=== PATIENT | male | born 1935 | race Caucasian/White ===

== ENCOUNTER 2016-12-08 14:55 | Inpatient (IN) | payer OTHER, MEDICARE ==
[~2016-12-08] VITALS: Ht 165.1 cm; Wt 65.0 kg
[~2016-12-08 14:55] MED LIST: ASPIRIN FOR CHI81 MG PO; DIABETA5 MG PO; FLEXERIL10 MG PO; LISINOPRIL2.5 MG PO; MEDROL DOSEPAK4 MG PO; MICRO-K 1010 MEQ PO; NAPROSYN375 MG PO; PEPCID20 MG PO; PRILOSEC20 MG PO; TENORETIC PO; TENORETIC-25/501 TAB PO; VICODIN 5/500 505 MG PO; ZOFRAN ODT8 MG PO
[2016-12-08 15:05] VITALS: BP 153/90
[2016-12-08] MEDS ORDERED: FISH OIL1000 MG PO (15:07)
[2016-12-08 15:20] LABS: BASO % 0.5 % (0.0-1.0); EOS # 0.3 10*3/uL (0.0-0.4); EOS % 4.2 % (1.0-4.0); HEMATOCRIT 38.5 % (42.0-52.0); HEMOGLOBIN 13.2 g/dl (14.0-18.0); LYMPH # 1.7 10*3/uL (1.3-4.4); LYMPH % 25.8 % (27.0-41.0); MEAN CELL VOLUME 87.3 fl (80.0-94.0); MEAN CORPUSCULAR HGB 29.9 pg (27.0-31.0); MEAN CORPUSCULAR HGB CONC 34.3 g/dl (33.0-37.0); MEAN PLATELET VOLUME 11.5 fl (9.6-12.3); MONO # 0.7 10*3/uL (0.1-1.0); NEUT # 3.9 10*3/uL (2.3-7.9); NEUT % 59.2 % (47.0-73.0); PLATELET COUNT AUTOMATED 127 10*3/uL (130-400); RED BLOOD COUNT 4.41 10*6/uL (4.50-5.90); RED CELL DISTRI WIDTH 12.8 % (0-14.5); WHITE BLOOD COUNT 6.6 10*3/uL (4.8-10.8)
[2016-12-08 15:29] LABS: PROTHROMBIN TIME 10.5 SECONDS (9.0-12.4)
[2016-12-08 15:37] LABS: ALBUMIN 3.4 gm/dl (3.1-4.5); ALKALINE PHOSPHATASE 122 U/L (45-117); BILIRUBIN, TOTAL 0.3 mg/dl (0.2-1.0); BUN 22 mg/dl (7-24); CARBON DIOXIDE 28 mmol/L (21-32); CHLORIDE 111 mmol/L (98-107); EST GLOM FILT AFRICAN AMERICAN > 60 ml/min; GLUCOSE 127 mg/dL (65-99); MAGNESIUM 1.8 mg/dL (1.5-2.1); POTASSIUM 4.2 mmol/L (3.5-5.1); SGOT/AST 16 IU/L (3-35); SGPT/ALT 18 U/L (12-78); SODIUM 144 mmol/L (136-145); TOTAL PROTEIN 6.1 gm/dL (6.4-8.2)
[2016-12-08 15:38] LABS: TROPONIN I < 0.015 ng/ml (<0.045)
[2016-12-08 16:43] VITALS: BP 152/94
[2016-12-08 17:30] VITALS: BP 172/84
[2016-12-08 20:00] VITALS: BP 165/77
[2016-12-09] VITALS: BP 159/77
[2016-12-09 00:42] LABS: CKMB 1.8 ng/ml (0.5-3.6)
[2016-12-09 06:34] LABS: BASO % 0.6 % (0.0-1.0); EOS # 0.4 10*3/uL (0.0-0.4); EOS % 5.2 % (1.0-4.0); HEMATOCRIT 41.4 % (42.0-52.0); HEMOGLOBIN 14.2 g/dl (14.0-18.0); LYMPH # 1.7 10*3/uL (1.3-4.4); LYMPH % 25.7 % (27.0-41.0); MEAN CORPUSCULAR HGB 29.8 pg (27.0-31.0); MEAN CORPUSCULAR HGB CONC 34.3 g/dl (33.0-37.0); MEAN PLATELET VOLUME 11.5 fl (9.6-12.3); MONO # 0.6 10*3/uL (0.1-1.0); MONO % 9.3 % (3.0-9.0); NEUT # 3.9 10*3/uL (2.3-7.9); NEUT % 58.8 % (47.0-73.0); PLATELET COUNT AUTOMATED 128 10*3/uL (130-400); RED BLOOD COUNT 4.76 10*6/uL (4.50-5.90); RED CELL DISTRI WIDTH 12.8 % (0-14.5); WHITE BLOOD COUNT 6.7 10*3/uL (4.8-10.8)
[2016-12-09 06:44] LABS: CKMB 1.4 ng/ml (0.5-3.6)
[2016-12-09 06:53] LABS: HEMOGLOBIN A1c 6.8 % (4.8-5.6)
[2016-12-09 07:09] LABS: BUN 19 mg/dl (7-24); CARBON DIOXIDE 28 mmol/L (21-32); CHLORIDE 109 mmol/L (98-107); GLUCOSE 130 mg/dL (65-99); POTASSIUM 4.2 mmol/L (3.5-5.1); SODIUM 143 mmol/L (136-145)
[2016-12-09 07:12] LABS: PROTHROMBIN TIME 10.6 SECONDS (9.0-12.4)
[2016-12-09 07:20] LABS: EST GLOM FILT AFRICAN AMERICAN > 60 ml/min; FREE T4 0.92 ng/dl (0.76-1.46)
[2016-12-09 07:28] LABS: VITAMIN D, 25-HYDROXY 46.2 ng/mL (30-100)
[2016-12-09 07:32] LABS: FOLIC ACID > 24.00 ng/mL (>5.38)
[2016-12-09 08:00] VITALS: BP 137/64
[2016-12-09 12:00] VITALS: BP 152/73
[2016-12-09] MEDS ORDERED: LISINOPRIL20 MG PO (15:56)
== END 2016-12-09 16:57 | disposition home or self-care (01) | DRG 392 ==
LOC: ED 14:55 → 4E 16:35 → EDHOLD 16:35 → 4E 16:36
PROVIDERS: Internal Medicine
PROC: 4A02XM4 Measurement of Cardiac Total Activity, External Approach (ICD-10-PCS; principal; 2016-12-09)
DX: K21.9 Gastro-esophageal reflux disease without esophagitis (principal); E11.65 Type 2 diabetes mellitus with hyperglycemia; D69.6 Thrombocytopenia, unspecified; E44.1 Mild protein-calorie malnutrition; I25.2 Old myocardial infarction; I45.10 Unspecified right bundle-branch block; Z90.49 Acquired absence of other specified parts of digestive tract; I10 Essential (primary) hypertension; Z87.891 Personal history of nicotine dependence; D64.9 Anemia, unspecified; Z68.23 Body mass index [BMI] 23.0-23.9, adult; N40.0 Benign prostatic hyperplasia without lower urinary tract symptoms

== ENCOUNTER → 2018-02-24 | Day surgery (SDC) | payer OTHER ==
[~2018-02-24] VITALS: Ht 162.5 cm; Wt 59.0 kg
[~2018-02-24] MED LIST changes: +FISH OIL1000 MG PO; +LISINOPRIL20 MG PO
--- NOTE | ~2018-02-24 | O ---
[place], [place] OPERATIVE NOTE NAME: MIGEL HURST SR [facility] #: [id number] UNIT #: [id number] ROOM: DOCTOR: ZAIN BULL MD BIRTHDATE: [birth year] DOS: 02/24/2018 PREOPERATIVE DIAGNOSIS: Cataract, right eye. POSTOPERATIVE DIAGNOSIS: Cataract, right eye. OPERATION: Extracapsular cataract extraction by phacoemulsification with posterior chamber intraocular lens implantation, right eye. ANESTHESIA: Monitored standby. OPERATIVE FINDINGS AND PROCEDURE: A 2% Xylocaine topical anesthetic gel was applied to the eye in the preop area. The patient was taken to the operating room, and prepped and draped in the standard fashion for sterile intraocular surgery. A timeout procedure was performed verifying correct patient, correct site and corrects lens with Capo Bull M.D. The operating microscope was swung into position and the lid speculum was inserted. Using a Alicia paracentesis blade, a paracentesis was made through clear cornea. Viscoelastic was used to fill the anterior chamber. Using a metal keratome a 2.4 mm self-sealing clear corneal cataract incision was made temporally at the limbus. Using a pre-bent 25 gauge cystotome needle, a standard continuous curvilinear capsulorrhexis was performed. The anterior capsule was removed with forceps. The lens nucleus was hydrodissected and phacoemulsified in the posterior chamber. Cortical material was removed with the irrigation aspiration hand piece and the posterior capsule was then polished with a curet under irrigation. The posterior chamber and capsular bag were filled with viscoelastic. A posterior chamber intraocular lens manufactured by: [employer], Model #[id number] and 19.0 diopters, right eye in strength were then inserted into the posterior chamber and within the capsular bag using the lens cartridge and injector system. Viscoelastic was removed using the irrigation aspiration handpiece. The anterior chamber was filled with balanced salt solution through the paracentesis. Both the paracentesis site and cataract incisions were hydrated with BSS and verified to be water-tight and self-sealing. Cefuroxime 1 mg/0.1 mL was injected into the anterior chamber through the paracentesis site. The incision checked to be water-tight using a Weck-Suzanne sponge. The integrity of the cataract wound and ocular tension were checked. Lid speculum and drapes were removed. The patient was transferred from the operating room to the recovery room in satisfactory condition. [place], [place] OPERATIVE NOTE NAME: MIGEL HURST SR UNIT #: [id number] ROOM: DOCTOR: ZAIN BULL MD BIRTHDATE: [birth year] ZAIN BULL MD CM:OPRECORD:OPERATIVE NOTE 7 ZAIN BULL MD 02/24/18 0851 interface
[2018-02-24 07:19] VITALS: BP 158/83
[2018-02-24 08:02] VITALS: BP 129/84
[2018-02-24 08:17] VITALS: BP 131/92
[2018-02-24 08:32] VITALS: BP 133/91
== END | disposition home or self-care (01) ==
LOC: SDC 02-19 10:15
DX: E11.36 Type 2 diabetes mellitus with diabetic cataract (principal); H25.811 Combined forms of age-related cataract, right eye; I10 Essential (primary) hypertension; K21.9 Gastro-esophageal reflux disease without esophagitis; Z98.890 Other specified postprocedural states; Z87.11 Personal history of peptic ulcer disease; Z90.49 Acquired absence of other specified parts of digestive tract; Z79.899 Other long term (current) drug therapy

== ENCOUNTER 2018-05-15 18:21 | Emergency (ER) | payer OTHER ==
[~2018-05-15] VITALS: Ht 157.4 cm; Wt 61.2 kg
[2018-05-15 19:08] LABS: BASO # 0.1 10*3/uL (0.0-0.1); BASO % 0.9 % (0.0-1.0); EOS # 0.2 10*3/uL (0.0-0.4); EOS % 3.6 % (1.0-4.0); HEMATOCRIT 43.3 % (42.0-52.0); HEMOGLOBIN 14.7 g/dl (14.0-18.0); LYMPH % 33.8 % (27.0-41.0); MEAN CELL VOLUME 90.2 fl (80.0-94.0); MEAN CORPUSCULAR HGB 30.6 pg (27.0-31.0); MEAN CORPUSCULAR HGB CONC 33.9 g/dl (33.0-37.0); MEAN PLATELET VOLUME 11.8 fl (9.6-12.3); MONO # 0.6 10*3/uL (0.1-1.0); MONO % 10.6 % (3.0-9.0); NEUT # 2.9 10*3/uL (2.3-7.9); NEUT % 50.9 % (47.0-73.0); PLATELET COUNT AUTOMATED 162 10*3/uL (130-400); WHITE BLOOD COUNT 5.8 10*3/uL (4.8-10.8)
[2018-05-15 19:13] LABS: BILIRUBIN NEGATIVE (NEGATIVE); BLOOD NEGATIVE (NEGATIVE); CLARITY CLEAR (CLEAR); COLOR YELLOW (YELLOW); GLUCOSE NEGATIVE (NEGATIVE); KETONE TRACE (NEGATIVE); LEUKO ESTERASE NEGATIVE (NEGATIVE); NITRITE NEGATIVE (NEGATIVE); PH 5.5 (5.0-9.0); SPECIFIC GRAVITY >= 1.030 (1.005-1.030); UROBILINOGEN 0.2 E.U./dl (0.2-1.0)
[2018-05-15 19:20] LABS: BACTERIA 1+; EPITHELIAL CELLS 0-2; MUCOUS TRACE
[2018-05-15 19:24] LABS: ALKALINE PHOSPHATASE 136 U/L (45-117); BUN 27 mg/dl (7-24); CHLORIDE 114 mmol/L (98-107); CREATININE 0.96 mg/dL (0.70-1.30); LIPASE 121 U/L (73-393); POTASSIUM 4.3 mmol/L (3.5-5.1); SGOT/AST 17 IU/L (3-35); SGPT/ALT 25 U/L (12-78); SODIUM 147 mmol/L (136-145); TOTAL PROTEIN 7.1 gm/dL (6.4-8.2)
== END 2018-05-15 21:50 | disposition home or self-care (01) ==
LOC: ED 18:21
PROVIDERS: Nurse Practitioner Family
DX: M79.18 Myalgia, other site (principal); R14.0 Abdominal distension (gaseous); R10.32 Left lower quadrant pain; Z79.84 Long term (current) use of oral hypoglycemic drugs; Z79.82 Long term (current) use of aspirin; Z79.899 Other long term (current) drug therapy; Z90.49 Acquired absence of other specified parts of digestive tract; Z87.891 Personal history of nicotine dependence

== ENCOUNTER → 2020-01-05 | Outpatient (CLI) | payer OTHER | END | disposition home or self-care (01) | LOC: US 12-02 11:30 | DX: E04.1 Nontoxic single thyroid nodule (principal) ==

== ENCOUNTER → 2020-05-31 | Outpatient (CLI) | payer OTHER | END | disposition home or self-care (01) | LOC: COVID19 12:31 | PROVIDERS: ATTEND Student in an Organized Health Care Education/Training Program | DX: U07.1 COVID-19 (principal) ==

== ENCOUNTER → 2020-11-08 | Outpatient (CLI) | payer OTHER | END | disposition home or self-care (01) | LOC: RAD 09:21 | PROVIDERS: ATTEND Orthopaedic Surgery | DX: M79.642 Pain in left hand (principal) ==

== ENCOUNTER 2022-10-04 07:11 | Emergency (ER) | payer OTHER ==
[~2022-10-04] VITALS: Ht 162.5 cm; Wt 59.0 kg
[2022-10-04] MEDS ORDERED: LISINOPRIL10 M1 PO (07:36)
[2022-10-04] MEDS ORDERED: TERAZOSIN HCL1 M1 PO (07:37)
[2022-10-04] MEDS ORDERED: METFORMIN XR500 MG PO (07:37)
[2022-10-04] MEDS ORDERED: CYCLOBENZAPRINE10 MG PO (08:26)
[2022-10-04] MEDS ORDERED: TRAMADOL HCL50 MG PO (08:26)
== END 2022-10-04 08:37 | disposition home or self-care (01) ==
LOC: ED 07:11
DX: M43.6 Torticollis (principal); E11.9 Type 2 diabetes mellitus without complications; K21.9 Gastro-esophageal reflux disease without esophagitis; I10 Essential (primary) hypertension; Z87.442 Personal history of urinary calculi; Z90.49 Acquired absence of other specified parts of digestive tract; Z90.89 Acquired absence of other organs; Z98.890 Other specified postprocedural states; Z87.891 Personal history of nicotine dependence

== ENCOUNTER 2022-10-07 23:45 | Emergency (ER) | payer OTHER ==
[~2022-10-07] VITALS: Ht 162.5 cm; Wt 61.2 kg
[~2022-10-07 23:45] MED LIST changes: +CYCLOBENZAPRINE10 MG PO; +LISINOPRIL10 M1 PO; +METFORMIN XR500 MG PO; +TERAZOSIN HCL1 M1 PO; +TRAMADOL HCL50 MG PO
== END 2022-10-08 01:00 | disposition home or self-care (01) ==
LOC: ED 23:45
DX: S09.90XA Unspecified injury of head, initial encounter (principal); K21.9 Gastro-esophageal reflux disease without esophagitis; I10 Essential (primary) hypertension; E11.9 Type 2 diabetes mellitus without complications; D64.9 Anemia, unspecified; Z90.49 Acquired absence of other specified parts of digestive tract; Z90.89 Acquired absence of other organs; Z98.890 Other specified postprocedural states; Z87.891 Personal history of nicotine dependence; Z87.442 Personal history of urinary calculi; W06.XXXA Fall from bed, initial encounter; Y93.89 Activity, other specified; Y92.009 Unspecified place in unspecified non-institutional (private) residence as the place of occurrence of the external cause; Y99.8 Other external cause status

== ENCOUNTER 2023-10-01 21:40 | Emergency (ER) | payer MEDICARE ==
[~2023-10-01] VITALS: Ht 172.7 cm; Wt 63.5 kg
[2023-10-01] MEDS ORDERED: methylPREDNISolone sod succ 125 MG VIAL IM ONE (21:50)
== END 2023-10-01 22:17 | disposition home or self-care (01) ==
LOC: ED 21:40
DX: M10.9 Gout, unspecified (principal); E11.9 Type 2 diabetes mellitus without complications; K21.9 Gastro-esophageal reflux disease without esophagitis; I10 Essential (primary) hypertension; Z87.442 Personal history of urinary calculi; Z90.49 Acquired absence of other specified parts of digestive tract; Z90.89 Acquired absence of other organs; Z98.890 Other specified postprocedural states; Z87.891 Personal history of nicotine dependence

== ENCOUNTER 2024-11-03 14:21 | Emergency (ER) | payer OTHER ==
[~2024-11-03] VITALS: Ht 165.1 cm; Wt 63.0 kg
[2024-11-03] MEDS ORDERED: SODIUM CHLORIDE 0.9% 1,000 ML IV ONE (14:30)
[2024-11-03] MEDS ORDERED: FAMOTIDINE 50 ML IV ONE (14:30)
[2024-11-03 14:45] LABS: BASO % 0.5 % (0.0-1.0); EOS # 0.1 10*3/uL (0.0-0.4); EOS % 1.1 % (1.0-4.0); HEMATOCRIT 36.4 % (42.0-52.0); MEAN CELL VOLUME 91.5 fl (80.0-94.0); MEAN CORPUSCULAR HGB 30.2 pg (27.0-31.0); MEAN PLATELET VOLUME 11.3 fl (9.6-12.3); MONO # 0.6 10*3/uL (0.1-1.0); MONO % 9.9 % (3.0-9.0); NEUT # 3.4 10*3/uL (2.3-7.9); NEUT % 62.1 % (47.0-73.0); PLATELET COUNT AUTOMATED 141 10*3/uL (130-400); RED BLOOD COUNT 3.98 10*6/uL (4.50-5.90); RED CELL DISTRI WIDTH 12.6 % (0-14.5); WHITE BLOOD COUNT 5.5 10*3/uL (4.8-10.8)
[2024-11-03] MEDS ORDERED: HEPARIN SODIUM 250 ML IV SCH ×2 (14:45→15:05)
[2024-11-03] MEDS ORDERED: MORPHINE Sulfate 2 MG/ML SYR IV ONE ×2 (14:50→15:25)
[2024-11-03 15:14] LABS: ALKALINE PHOSPHATASE 99 U/L (46-116); BUN 26 mg/dl (9-23); CHLORIDE 106 mmol/L (98-107); LIPASE 29 U/L (12-53); POTASSIUM 4.1 mmol/L (3.4-5.1); SGPT/ALT 9 U/L (5-49); TOTAL PROTEIN 6.6 gm/dL (6.0-8.0)
[2024-11-03] MEDS ORDERED: Ondansetron Hydrochloride 4 MG/2 ML VIAL IV ONE (15:35)
== END 2024-11-03 15:43 | disposition short-term general hospital (02) ==
LOC: ED 14:21
PROVIDERS: Internal Medicine
DX: I21.3 ST elevation (STEMI) myocardial infarction of unspecified site (principal); I10 Essential (primary) hypertension; E11.9 Type 2 diabetes mellitus without complications; K21.9 Gastro-esophageal reflux disease without esophagitis; Z79.899 Other long term (current) drug therapy; Z90.49 Acquired absence of other specified parts of digestive tract; Z90.89 Acquired absence of other organs; Z98.890 Other specified postprocedural states

== ENCOUNTER 2024-11-11 10:57 | Emergency (ER) | payer MEDICARE ==
[~2024-11-11] VITALS: Ht 162.5 cm; Wt 56.7 kg
[2024-11-11] MEDS ORDERED: SODIUM CHLORIDE 0.9% 1,000 ML IV ONE (11:20)
[2024-11-11] MEDS ORDERED: SIMETHICONE 80 MG TAB PO ONE (11:20)
[2024-11-11] MEDS ORDERED: IOHEXOL 300 MG/ML 100 ML VIAL IV ONE (11:25)
[2024-11-11 11:38] LABS: BASO % 0.6 % (0.0-1.0); EOS # 0.1 10*3/uL (0.0-0.4); EOS % 1.6 % (1.0-4.0); HEMATOCRIT 30.7 % (42.0-52.0); MEAN CORPUSCULAR HGB 30.3 pg (27.0-31.0); MEAN CORPUSCULAR HGB CONC 32.6 g/dl (33.0-37.0); MEAN PLATELET VOLUME 10.8 fl (9.6-12.3); MONO # 0.6 10*3/uL (0.1-1.0); MONO % 9.8 % (3.0-9.0); NEUT # 3.1 10*3/uL (2.3-7.9); NEUT % 49.1 % (47.0-73.0); PLATELET COUNT AUTOMATED 170 10*3/uL (130-400); RED CELL DISTRI WIDTH 12.9 % (0-14.5); WHITE BLOOD COUNT 6.3 10*3/uL (4.8-10.8)
[2024-11-11 11:58] LABS: ALKALINE PHOSPHATASE 103 U/L (46-116); BUN 18 mg/dl (9-23); CHLORIDE 105 mmol/L (98-107); LIPASE 42 U/L (12-53); POTASSIUM 3.9 mmol/L (3.4-5.1); SGPT/ALT 11 U/L (5-49); TOTAL PROTEIN 6.1 gm/dL (6.0-8.0)
[2024-11-11] MEDS ORDERED: MORPHINE Sulfate 2 MG/ML SYR IV ONE (12:35)
[2024-11-11] MEDS ORDERED: HYDROmorphONE Hydrochloride 0.5 MG/0.5 ML SYRINGE IV ONE ×3 (13:00→15:30)
[2024-11-11] MEDS ORDERED: Ondansetron Hydrochloride 4 MG/2 ML VIAL IV ONE (15:40)
== END 2024-11-11 20:00 | disposition short-term general hospital (02) ==
LOC: ED 10:57
PROVIDERS: Internal Medicine
DX: D73.5 Infarction of spleen (principal); R79.89 Other specified abnormal findings of blood chemistry; I10 Essential (primary) hypertension; E11.9 Type 2 diabetes mellitus without complications; K21.9 Gastro-esophageal reflux disease without esophagitis; Z79.899 Other long term (current) drug therapy; Z90.49 Acquired absence of other specified parts of digestive tract; Z90.89 Acquired absence of other organs; Z98.890 Other specified postprocedural states

== ENCOUNTER 2024-11-17 18:08 | Emergency (ER) | payer MEDICARE ==
[~2024-11-17] VITALS: Ht 162.5 cm; Wt 54.4 kg
[2024-11-17 19:56] LABS: BASO % 0.4 % (0.0-1.0); EOS % 0.4 % (1.0-4.0); MEAN CELL VOLUME 92.5 fl (80.0-94.0); MEAN CORPUSCULAR HGB 30.3 pg (27.0-31.0); MEAN CORPUSCULAR HGB CONC 32.8 g/dl (33.0-37.0); MEAN PLATELET VOLUME 10.8 fl (9.6-12.3); MONO # 0.4 10*3/uL (0.1-1.0); NEUT # 6.9 10*3/uL (2.3-7.9); NEUT % 87.3 % (47.0-73.0); PLATELET COUNT AUTOMATED 179 10*3/uL (130-400); RED BLOOD COUNT 3.46 10*6/uL (4.50-5.90); RED CELL DISTRI WIDTH 13.4 % (0-14.5)
[2024-11-17 20:16] LABS: ALKALINE PHOSPHATASE 107 U/L (46-116); BUN 31 mg/dl (9-23); CHLORIDE 111 mmol/L (98-107); LIPASE 27 U/L (12-53); POTASSIUM 3.9 mmol/L (3.4-5.1); SGPT/ALT 8 U/L (5-49); TOTAL PROTEIN 6.2 gm/dL (6.0-8.0)
[2024-11-17 20:41] LABS: BILIRUBIN Negative (Negative); BLOOD Negative (Negative); CLARITY Clear (Clear); COLOR Dark Yellow (Yellow); GLUCOSE Negative (Negative); KETONE Trace (Negative); LEUKO ESTERASE Negative (Negative); NITRITE Negative (Negative); PH 5.5 (4.5-8.0); SPECIFIC GRAVITY 1.025 (1.001-1.030)
[2024-11-17 20:58] LABS: MUCOUS TRACE; RBC 0-2 rbc/hpf (0-2); WBC 0-2 wbc/hpf (0-5)
== END 2024-11-17 21:16 | disposition left against medical advice (07) ==
LOC: ED 18:08
PROVIDERS: Emergency Medicine
DX: N17.0 Acute kidney failure with tubular necrosis (principal); R79.89 Other specified abnormal findings of blood chemistry; R10.30 Lower abdominal pain, unspecified; Z79.899 Other long term (current) drug therapy; Z79.84 Long term (current) use of oral hypoglycemic drugs; Z90.49 Acquired absence of other specified parts of digestive tract; Z90.89 Acquired absence of other organs; Z87.891 Personal history of nicotine dependence; Z53.29 Procedure and treatment not carried out because of patient's decision for other reasons